=== PATIENT | female | born 1975 | race Caucasian/White ===

== ENCOUNTER 2017-11-16 13:53 | Emergency (ER) | payer OTHER ==
[~2017-11-16] VITALS: Ht 167.6 cm; Wt 103.5 kg
[2017-11-16 14:05] VITALS: TEMP 36.6; Ht 167.6 cm; Wt 103.5 kg
[2017-11-16] MEDS ORDERED: SODIUM CHLORIDE 0.9% 1000ML 1,000 ML IV STA (14:19)
[2017-11-16] MEDS ORDERED: ONDANSETRON INJ 2 MG/ML 2 ML VIAL IV STA (14:19)
[2017-11-16] MEDS ORDERED: VAREPAK2 PO (14:41)
[2017-11-16] MEDS ORDERED: LISI-787 PO (14:41)
[2017-11-16] MEDS ORDERED: CYM/30 PO (14:41)
[2017-11-16] MEDS ORDERED: DEXT1TAB15 PO (14:41)
[2017-11-16] MEDS ORDERED: ARIP2TAB3 PO (14:41)
[2017-11-16] MEDS ORDERED: OXYC20TA50 PO (14:41)
[2017-11-16] MEDS ORDERED: DICL1GEL12 TOP (14:41)
[2017-11-16] MEDS ORDERED: OXYC1TAB3 PO (14:41)
[2017-11-16] MEDS ORDERED: ATR25 PO (14:41)
[2017-11-16] MEDS ORDERED: OMEP40CA41 PO (14:41)
[2017-11-16] MEDS ORDERED: MONT1TAB3 PO (14:41)
[2017-11-16] MEDS ORDERED: DULO60CA44 PO (14:41)
[2017-11-16 14:53] LABS: BASO % 0.2 %; BASO ABS # 0.03 K/uL (0-0.2); EOS % 0.1 %; EOS ABS # 0.01 K/uL (0-0.5); HEMATOCRIT 43.8 % (37-47); HEMOGLOBIN 15.6 g/dL (12.0-16.0); IG# 0.08 K/uL (0.00-0.02); LYMPH ABS # 1.97 K/uL (1.2-3.4); MEAN CELL VOLUME 86.4 fL (80-100); MEAN CORPUSCULAR HEMOGLOBIN 30.8 pg (25-34); MEAN CORPUSCULAR HGB CONC 35.6 g/dl (32-36); MEAN PLATELET VOLUME 10.4 fL (7.4-10.4); MONO % 4.1 %; MONO ABS # 0.68 K/uL (0.11-0.59); NEUT % 83.1 %; PLATELET COUNT 391 K/uL (130-400); RED CELL DISTRIBUTION WIDTH CV 14.9 % (11.5-14.5); RED CELL DISTRIBUTION WIDTH SD 47.2 fL (36.4-46.3); WHITE BLOOD COUNT 16.47 K/uL (4.8-10.8)
[2017-11-16 15:11] LABS: ALBUMIN 3.9 gm/dl (3.4-5.0); CALCIUM 9.3 mg/dl (8.5-10.1); CREATININE 1.12 mg/dl (0.60-1.20); POTASSIUM 3.7 mmol/L (3.5-5.1)
[2017-11-16 15:14] LABS: TOTAL PROTEIN 8.9 gm/dl (6.4-8.2)
[2017-11-16] MEDS ORDERED: HYDROmorphone INJ 1 MG/ML SYR IV STA (15:40)
[2017-11-16] MEDS ORDERED: OPTIRAY 320 IV PRN (15:45)
--- NOTE | 2017-11-16 15:48 | DIAGNOSTIC IMAGING REPORT ---
ABD/PELVIS IV CONTRAST ONLY CT DOSE: 1273.16 mGy.cm HISTORY: Nausea. Vomiting. upper abdominal pain, vomiting TECHNIQUE: Multiaxial CT images of the abdomen and pelvis were performed following the use of intravenous contrast. A dose lowering technique was utilized adhering to the principles of ALARA. COMPARISON STUDY: None. FINDINGS: Lung bases are clear. Liver is uniform throughout. No evidence for gallbladder distention. Mild cortical scarring of the kidneys with no evidence for hydronephrosis. The bowel pattern is nonobstructive. The appendix is normal. Uterus is midline. Bladder is midline. There is no free fluid within the pelvic cul-de-sac. IMPRESSION: Negative study The above report was generated using voice recognition software. It may contain grammatical, syntax or spelling errors. Electronically signed by: Lenny Khanna M.D. 11/16/2017 3:47 PM Dictated Date/Time: 11/16/2017 3:44 PM
[2017-11-16 16:30] VITALS: BP 126/85; PULSE 102; O2SAT 98
[2017-11-16] MEDS ORDERED: ONDA4TAB10 SL (16:40)
--- NOTE | 2017-11-16 16:42 | EMERGENCY ROOM VISIT NOTE ---
History First contact with patient: 14:09 Chief Complaint: ABDOMINAL PAIN Stated Complaint: PAIN STOMACH, FEEL FAINT Nursing Triage Summary: pt started with abd pain and profuse vomiting last night pt reports hx of constipation did have bm today History of Present Illness The patient is a 42 year old female who presents to the Emergency Room with complaints of abdominal pain. The patient reports she had some abdominal cramping last night. The pain was throughout her upper abdomen at that time. She reports that now, she has pain throughout her upper and lower abdomen. She has had vomiting since waking up this morning. She has a history of constipation and thought this may be contributing to her symptoms, so she took stool softeners and laxatives without relief. She did have 2 bowel movements last night. She rates her discomfort a 9/10. She denies any history of abdominal surgeries. She does take Nexium for reflux. She states that no one around her has been sick. She denies alcohol use. She denies urinary symptoms or fevers. She did try to take her own pain medication but was unable to keep it down. Review of Systems A complete 10 point review of systems was reviewed with the patient with pertinent positives and negatives as per history of present illness. All else were negative. Past Medical/Surgical History Medical Problems: (1) No significant active problems Social History Smoking Status: Current Every Day Smoker Alcohol Use: none Marital Status: Housing Status: lives with significant other Current/Historical Medications Scheduled Aripiprazole (Abilify), 0 PO DAILY Dextroamphetamine Sulfate (Dextroamphetamine Sulfate), 1 TAB PO BID Diclofenac Sodium (Topical) (Voltaren 1% Top Gel), 1 APPLN TOP QID Duloxetine HCl (Cymbalta), 1 CAP PO QAM Duloxetine Hcl (Cymbalta), 60 MG PO HS Hydroxyzine HCl (Hydroxyzine HCl), 1 TAB PO DAILY Lisinopril/Hctz (Zestoretic 20MG/12.5MG), 1 TAB PO DAILY Montelukast Sodium (Singulair), 10 MG PO DAILY Omeprazole (Prilosec), 0 PO DAILY Ondasetron Odt (Zofran Odt), 4 MG SL Q6H Oxycodone Hcl (Oxycontin), 10 MG PO Q12 Oxycodone Ir (Roxicodone Ir), 5 MG PO TID Varenicline Tartrate (Chantix), PO UD Physical Exam Vital Signs Date Time Temp Pulse Resp B/P (MAP) Pulse Ox O2 Delivery O2 Flow Rate FiO2 11/16/17 16:30 102 18 126/85 98 Room Air 11/16/17 15:30 105 18 130/81 96 Room Air 11/16/17 14:05 36.6 126 20 143/91 95 Room Air Physical Exam VITALS: Vitals are noted on the nurse's note and reviewed by myself. Vital signs stable. GENERAL: This is a 42-year-old female, in no acute distress, nondiaphoretic, well-developed well-nourished. SKIN: The skin was without rashes. EARS: External auditory canals clear, tympanic membranes pearly nathan without erythema or effusion bilaterally. EYES: Pupils equal round and reactive to light and accommodation. MOUTH: Mucous membranes moist. Tonsils are not enlarged. Pharynx without erythema or exudate. NECK: Supple without nuchal rigidity. No lymphadenopathy. HEART: Regular rate and rhythm without murmurs gallops or rubs. LUNGS: Clear to auscultation bilaterally without wheezes, rales or rhonchi. No retractions or accessory muscle use. ABDOMEN: Positive bowel sounds x 4. Soft, nondistended. There is diffuse mild tenderness to palpation. No guarding or rebound tenderness. NEURO: Patient was alert and oriented to person place and time. Medical Decision & Procedures ER Provider Diagnostic Interpretation: ABD/PELVIS IV CONTRAST ONLY CT DOSE: 1273.16 mGy.cm HISTORY: Nausea. Vomiting. upper abdominal pain, vomiting TECHNIQUE: Multiaxial CT images of the abdomen and pelvis were performed following the use of intravenous contrast. A dose lowering technique was utilized adhering to the principles of ALARA. COMPARISON STUDY: None. FINDINGS: Lung bases are clear. Liver is uniform throughout. No evidence for gallbladder distention. Mild cortical scarring of the kidneys with no evidence for hydronephrosis. The bowel pattern is nonobstructive. The appendix is normal. Uterus is midline. Bladder is midline. There is no free fluid within the pelvic cul-de-sac. IMPRESSION: Negative study Laboratory Results 11/16/17 14:36 Red Blood Count 5.07, Mean Corpuscular Volume 86.4, Mean Corpuscular Hemoglobin 30.8, Mean Corpuscular Hemoglobin Concent 35.6, Mean Platelet Volume 10.4, Neutrophils (%) (Auto) 83.1, Lymphocytes (%) (Auto) 12.0, Monocytes (%) (Auto) 4.1, Eosinophils (%) (Auto) 0.1, Basophils (%) (Auto) 0.2, Neutrophils # (Auto) 13.70, Lymphocytes # (Auto) 1.97, Monocytes # (Auto) 0.68, Eosinophils # (Auto) 0.01, Basophils # (Auto) 0.03 11/16/17 14:36 Test 11/16/17 14:36 11/16/17 14:40 White Blood Count 16.47 K/uL (4.8-10.8) Red Blood Count 5.07 M/uL (4.2-5.4) Hemoglobin 15.6 g/dL (12.0-16.0) Hematocrit 43.8 % (37-47) Mean Corpuscular Volume 86.4 fL (80-100) Mean Corpuscular Hemoglobin 30.8 pg (25-34) Mean Corpuscular Hemoglobin Concent 35.6 g/dl (32-36) Platelet Count 391 K/uL (130-400) Mean Platelet Volume 10.4 fL (7.4-10.4) Neutrophils (%) (Auto) 83.1 % Lymphocytes (%) (Auto) 12.0 % Monocytes (%) (Auto) 4.1 % Eosinophils (%) (Auto) 0.1 % Basophils (%) (Auto) 0.2 % Neutrophils # (Auto) 13.70 K/uL (1.4-6.5) Lymphocytes # (Auto) 1.97 K/uL (1.2-3.4) Monocytes # (Auto) 0.68 K/uL (0.11-0.59) Eosinophils # (Auto) 0.01 K/uL (0-0.5) Basophils # (Auto) 0.03 K/uL (0-0.2) RDW Standard Deviation 47.2 fL (36.4-46.3) RDW Coefficient of Variation 14.9 % (11.5-14.5) Immature Granulocyte % (Auto) 0.5 % Immature Granulocyte # (Auto) 0.08 K/uL (0.00-0.02) Anion Gap 8.0 mmol/L (3-11) Est Creatinine Clear Calc Drug Dose 81.1 ml/min Estimated GFR () 71.2 Estimated GFR (Non- 61.4 BUN/Creatinine Ratio 18.7 (10-20) Calcium Level 9.3 mg/dl (8.5-10.1) Total Bilirubin 0.8 mg/dl (0.2-1) Aspartate Amino Transf (AST/SGOT) 12 U/L (15-37) Alanine Aminotransferase (ALT/SGPT) 28 U/L (12-78) Alkaline Phosphatase 92 U/L (45-117) Total Protein 8.9 gm/dl (6.4-8.2) Albumin 3.9 gm/dl (3.4-5.0) Globulin 5.0 gm/dl (2.5-4.0) Albumin/Globulin Ratio 0.8 (0.9-2) Lipase 202 U/L (73-393) Urine Color DK YELLOW Urine Appearance CLOUDY (CLEAR) Urine pH 6.5 (4.5-7.5) Urine Specific Pillow 1.023 (1.000-1.030) Urine Protein TRACE (NEG) Urine Glucose (UA) NEG (NEG) Urine Ketones TRACE (NEG) Urine Occult Blood NEG (NEG) Urine Nitrite NEG (NEG) Urine Bilirubin NEG (NEG) Urine Urobilinogen NEG (NEG) Urine Leukocyte Esterase MODERATE (NEG) Urine WBC (Auto) 5-10 /hpf (0-5) Urine RBC (Auto) 5-10 /hpf (0-4) Urine Hyaline Casts (Auto) 5-10 /lpf (0-5) Urine Epithelial Cells (Auto) >30 /lpf (0-5) Urine Bacteria (Auto) NEG (NEG) Urine Test NEG (NEG) Medications Administered Medications (Trade) Dose Ordered Sig/Karen Route Start Time Stop Time Status Last Admin Dose Admin Sodium Chloride 1,000 ml @ 999 mls/hr Q1H1M STAT IV 11/16/17 14:19 11/16/17 15:19 DC 11/16/17 14:45 999 MLS/HR Ondansetron HCl (Zofran Inj) 4 mg NOW STAT IV 11/16/17 14:19 11/16/17 14:21 DC 11/16/17 14:44 4 MG Hydromorphone HCl (Dilaudid Inj) 1 mg NOW STAT IV 11/16/17 15:40 11/16/17 15:41 DC 11/16/17 15:46 1 MG Medical Decision Differential diagnosis includes pancreatitis, cholecystitis, gastritis, gastroenteritis, diverticulitis, peptic ulcer disease, among others. The patient is a 42-year-old female who presents today complaining of abdominal pain and vomiting. Labs revealed leukocytosis of 16,000, possibly secondary to infection or due to vomiting. Patient is not anemic. There were no concerning electrolyte abnormalities. Urinalysis was not suggestive of infection. Urine was negative. CT of the abdomen/pelvis was performed and shows no acute intra-abdominal findings. Patient was treated as above with fluids, pain medication and nausea medication with improvement of symptoms. He will be discharged home with a prescription for Zofran and was advised to follow-up with her PCP for her abdominal pain. The patient's case was reviewed with Dr. Sidhu, ED attending physician, who agreed with my assessment and treatment plan. Based on the patient's presentation and work up, I feel the patient is stable for outpatient treatment. The patient was educated to return to the emergency department for any worsening of their current condition or new/concerning symptoms. She will follow up with her PCP. Medication Reconcilliation Current Medication List: was personally reviewed by me Blood Pressure Screening Patient's blood pressure: Normal blood pressure Impression Primary Impression: Generalized abdominal pain Additional Impression: Vomiting Departure Information Dispostion Home / Self-Care Condition GOOD Prescriptions Ondasetron Odt (ZOFRAN ODT) 4 Mg Tab 4 MG SL Q6H for Nausea, #15 TAB Prov: Ebonie Gasca ., ANGEL 11/16/17 Referrals Zoya Pompa., (PCP) Patient Instructions My [facility] Additional Instructions You have been prescribed Zofran to be used for any nausea or vomiting. Take as prescribed. For pain control, you can use the following [id number] medicines (if >12 yo): - Regular strength (325mg/tab) Tylenol (acetaminophen) 2 tabs every 4-6 hours as needed. Do not exceed 12 tablets in a 24 hour period. Avoid taking more than 4 grams (4000 mg) of Tylenol per day. This includes any other sources of acetaminophen you may take on a regular basis. Keep a clear liquid diet for the next 24-48 hours. You may advance her diet as tolerated, but make sure to eat bland foods such as bananas, rice, applesauce, toast and crackers. Follow-up with your primary care provider within 2 days for a recheck. Return to the emergency department with any worsening or new/concerning symptoms. Problem Qualifiers Additional Impression: Vomiting Vomiting type: unspecified Vomiting Intractability: non-intractable Nausea presence: with nausea Qualified Codes: R11.2 - Nausea with vomiting, unspecified
== END 2017-11-16 16:51 | disposition home or self-care (01) ==
LOC: C.EDB 13:54 → C.EDC 16:51
DX: R10.84 Generalized abdominal pain (principal); R11.2 Nausea with vomiting, unspecified; K21.9 Gastro-esophageal reflux disease without esophagitis; F17.210 Nicotine dependence, cigarettes, uncomplicated; Z79.899 Other long term (current) drug therapy